=== PATIENT | female | born 1950 | race African-American/Black ===

== ENCOUNTER → 2017-03-21 | Outpatient (CLI) | payer OTHER ==
[2015-03-09 11:09] VITALS: BP 168/87
[~2017-03-21] MED LIST: CHLO25TA PO; DOCU-109 PO; ESTR0.5T PO; LISI-334 PO; ONDA4TAB10 SL; Oxycodone Hcl/Acetaminophen PO
--- NOTE | 2017-03-21 10:33 | RAD ---
DATE: 03/21/2017 EXAM: DIGITAL SCREEN BILAT W/CAD HISTORY: Routine screening COMPARISON: 03/18/2016 This study was interpreted with the benefit of Computerized Aided Detection (CAD). The breast parenchyma shows scattered fibroglandular densities. Breast parenchyma level B. FINDINGS: The fibroglandular densities in the breasts are nodular in character. The majority of these densities are unchanged. There is a 10 x 6 mm lobulated density projected over the posterior aspect of the left breast at the midline on the cc view which does appear to have increased in size since previous studies. It is not clearly defined on the oblique view. Benign type calcifications are present. No suspicious microcalcifications have developed. IMPRESSION: Possible enlarging left breast nodule as described above. Diagnostic mammograms including spot compression CC and straight medial lateral views are suggested for further evaluation, as well as possibly left breast ultrasound. BI-RADS CATEGORY: 0 INCOMPLETE: NEEDS ADDITIONAL IMAGING EVALUATION AND/OR PRIOR MAMMOGRAMS FOR COMPARISON. RECOMMENDED FOLLOW-UP: ADD ADDITIONAL IMAGING PQRS compliance statement: Patient information was entered into a reminder system with a target due date for the next mammogram. Mammography is a sensitive method for finding small breast cancers, but it does not detect them all and is not a substitute for careful clinical examination. A negative mammogram does not negate a clinically suspicious finding and should not result in delay in biopsying a clinically suspicious abnormality. "Our facility is accredited by the [employer] Mammography [employer]."
== END | disposition home or self-care (01) ==
LOC: MAMMO 08:21
PROVIDERS: ATTEND Family Medicine
DX: Z12.31 Encounter for screening mammogram for malignant neoplasm of breast (principal)
CPT/HCPCS: G0202; 77067

== ENCOUNTER → 2017-03-31 | Outpatient (CLI) | payer OTHER ==
[2015-03-09 11:09] VITALS: BP 168/87
--- NOTE | 2017-03-31 10:17 | RAD ---
DATE: 03/31/2017 EXAM: DIGITAL DIAGNOSTIC LT HISTORY: Suspicious screening study COMPARISON: 03/21/2017, 03/18/2016, 03/16/2015, 03/13/2014 This study was interpreted with the benefit of Computerized Aided Detection (CAD). The breast parenchyma shows scattered fibroglandular densities. Breast parenchyma level B. FINDINGS: Additional spot compression cc and straight mediolateral views were obtained of the area of concern seen near the midline of the left breast on the screening CC view. No discrete nodule is seen. The fibroglandular pattern in the CC projection is similar to that seen on old studies such as 03/13/2014. No nodule is identified on the spot compression oblique or straight medial lateral views. The appearance on the screening study appears to have been due to a summation of fibroglandular shadows. IMPRESSION: Stable left mammograms without evidence of malignancy. BI-RADS CATEGORY: 2 BENIGN FINDING(S) RECOMMENDED FOLLOW-UP: 12M 12 MONTH FOLLOW-UP PQRS compliance statement: Patient information was entered into a reminder system with a target due date for the next mammogram. Mammography is a sensitive method for finding small breast cancers, but it does not detect them all and is not a substitute for careful clinical examination. A negative mammogram does not negate a clinically suspicious finding and should not result in delay in biopsying a clinically suspicious abnormality. "Our facility is accredited by the [employer] Mammography [employer]."
== END | disposition home or self-care (01) ==
LOC: MAMMO 09:22
PROVIDERS: ATTEND Family Medicine
DX: N63 Unspecified lump in breast (principal)
CPT/HCPCS: G0206; 77065

== ENCOUNTER → 2018-04-02 | Outpatient (CLI) | payer OTHER | END | disposition home or self-care (01) | LOC: MAMMO 08:11 | DX: Z12.31 Encounter for screening mammogram for malignant neoplasm of breast (principal); I10 Essential (primary) hypertension | CPT/HCPCS: 77063; 77067 ==

== ENCOUNTER → 2019-05-04 | Outpatient (CLI) | payer OTHER ==
[2015-03-09 11:09] VITALS: BP 168/87
[~2019-05-04] MED LIST changes: -CHLO25TA PO; +CHLO25TA10 PO
--- NOTE | 2019-05-06 08:31 | RAD ---
DATE: 04/02/2018 EXAM: MAMMO AP SCREENING BILATERAL HISTORY: Routine screening COMPARISON: 03/18/2016, 03/21/2017, 04/02/2018 mammographic exams This study was interpreted with the benefit of Computerized Aided Detection (CAD). Breast Density: HETERO The breast parenchyma is heterogenously dense, which could reduce sensitivity of mammography. Breast parenchyma level C. FINDINGS: Small masses bilaterally are present and stable. No suspicious calcifications or distortion. No dominant new mass. IMPRESSION: Benign and stable. BI-RADS CATEGORY: 1 NEGATIVE RECOMMENDED FOLLOW-UP: 12M 12 MONTH FOLLOW-UP PQRS compliance statement: Patient information was entered into a reminder system with a target due date in one year for the next mammogram. Mammography is a sensitive method for finding small breast cancers, but it does not detect them all and is not a substitute for careful clinical examination. A negative mammogram does not negate a clinically suspicious finding and should not result in delay in biopsying a clinically suspicious abnormality. "Our facility is accredited by the [employer] Mammography Program."
== END | disposition home or self-care (01) ==
LOC: MAMMO 09:17
PROVIDERS: ATTEND Family Medicine
DX: Z12.31 Encounter for screening mammogram for malignant neoplasm of breast (principal); N63.20 Unspecified lump in the left breast, unspecified quadrant; N63.10 Unspecified lump in the right breast, unspecified quadrant
CPT/HCPCS: 77063; 77067

== ENCOUNTER → 2020-04-30 | Outpatient (CLI) | payer MEDICARE ==
[2015-03-09 11:09] VITALS: BP 168/87
--- NOTE | 2020-04-30 10:43 | RAD ---
DATE: 04/30/2020 9:27 AM EXAM: MAMMO AP SCREENING BILATERAL HISTORY: Screening COMPARISON: 05/04/2019, 04/02/2018 Bilateral CC and MLO views of the breasts were performed. Bilateral breast tomosynthesis was performed in CC and MLO projections. This study was interpreted with the benefit of Computerized Aided Detection (CAD). FINDINGS: Breast Density: SCATTERED The breast parenchyma shows scattered fibroglandular densities. Breast parenchyma level B No suspicious masses, microcalcifications or architectural distortion is present to suggest malignancy in either breast. The visualized axillae are unremarkable. IMPRESSION: No mammographic evidence of malignancy. BI-RADS CATEGORY: 1 NEGATIVE RECOMMENDED FOLLOW-UP: 12M 12 MONTH FOLLOW-UP Annual screening mammography is recommended, unless clinically indicated sooner based on symptoms or change in physical exam. PQRS compliance statement: Patient information was entered into a reminder system with a target due date for the next mammogram. Mammography is a sensitive method for finding small breast cancers, but it does not detect them all and is not a substitute for careful clinical examination. A negative mammogram does not negate a clinically suspicious finding and should not result in delay in biopsying a clinically suspicious abnormality. "Our facility is accredited by the [employer] Mammography Program."
== END | disposition home or self-care (01) ==
LOC: MAMMO 09:24
PROVIDERS: ATTEND Family Medicine
DX: Z12.31 Encounter for screening mammogram for malignant neoplasm of breast (principal)
CPT/HCPCS: 77063; 77067

== ENCOUNTER → 2021-05-04 | Outpatient (CLI) | payer MEDICARE ==
[2015-03-09 11:09] VITALS: BP 168/87
[~2021-05-04] MED LIST changes: -LISI-334 PO; +LISI20TA18 PO
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
== END ==
LOC: MAMMO 10:09
PROVIDERS: ATTEND Family Medicine
DX: Z12.31 Encounter for screening mammogram for malignant neoplasm of breast (principal)
CPT/HCPCS: 77063; 77067

== ENCOUNTER → 2021-06-18 | Outpatient (CLI) | payer MEDICARE ==
[2015-03-09 11:09] VITALS: BP 168/87
[~2021-06-18] MED LIST changes: +CONTRAST GIVEN. MC PRN; +IOHEXOL 240 MG/ML 50ML VIAL. PO ONE
--- NOTE | 2021-06-18 11:55 | RAD ---
Exam: CT abdomen/pelvis without intravenous contrast Indication: Acute left flank pain left lower quadrant pain Comparison: CT abdomen pelvis 01/05/2015 Technique: Helical CT imaging performed of the abdomen and pelvis without the use of intravenous cont rast. Sagittal and coronal reformats were obtained. One or more of the following individualized dose reduction techniques were utilized for this examinat ion: 1. Automated exposure control 2. Adjustment of the mA and/or kV according to patient size 3. Use of iterative reconstruction technique. Findings: Inherently limited evaluation without intravenous contrast. Lower chest: There is a calcified granuloma in the right lower lobe. Mild atelectasis or scarring in the posterior lower lobes. The heart is normal in size. Liver: Unremarkable noncontrast appearance of the liver Gallbladder/Biliary Tree: The gallbladder is surgically absent. Bile ducts are unremarkable. Pancreas: Normal. Spleen: Calcified splenic granulomas. No splenomegaly. Adrenal Glands: Normal. Kidneys/Ureters/Bladder: Kidneys are normal in size. No nephrolithiasis or hydronephrosis. Proximal u reters are normal. Mid to distal ureters are partially obscured by streak artifact from multiple surg ical clips along the iliac chains. No definite ureteral calculus or hydroureter. The bladder is gil l. Reproductive Organs: The uterus is surgically absent. The left ovary is normal in appearance. The rig ht ovary is not visualized. Stomach, small bowel, and colon: Small hiatal hernia. The stomach is otherwise normal. There is no sm all bowel obstruction. Colon and appendix are normal. Vasculature: Abdominal aorta is normal in caliber. Mild scattered calcifications. Lymph Nodes: No lymphadenopathy. Peritoneum and retroperitoneum: No free fluid or free air. Bones: There is mild degenerative disc disease in the lower thoracic spine. Mild degenerative joint d isease of the hips. Miscellaneous: Small fat-containing umbilical hernia. Impression: 1. No nephrolithiasis or hydronephrosis. Mid to distal ureters are suboptimally evaluated due to str eak artifact from multiple surgical clips in the abdomen and pelvis however there is no evidence of o bstructing ureteral calculus. 2. Surgical changes of hysterectomy and cholecystectomy. 3. Small hiatal hernia. 4. Small fat-containing umbilical hernia. Electronically signed by: Zaina Santos MD (06/18/2021 11:52 AM) [facility]
== END ==
LOC: CT 08:18
PROVIDERS: ATTEND Physician Assistant
DX: K42.9 Umbilical hernia without obstruction or gangrene (principal); K44.9 Diaphragmatic hernia without obstruction or gangrene; J84.10 Pulmonary fibrosis, unspecified; I70.0 Atherosclerosis of aorta; M51.34 Other intervertebral disc degeneration, thoracic region; M16.0 Bilateral primary osteoarthritis of hip
CPT/HCPCS: 74176; Q9966